=== PATIENT | female | born 1945 | race Caucasian/White ===

== ENCOUNTER 2022-01-08 18:25 | Emergency (ER) | payer BC ==
[2022-01-08] MEDS ORDERED: Acetaminophen/oxyCODONE 325-5 MG Tab PO ONE (18:26)
[2022-01-08] MEDS ORDERED: Ondansetron 4 MG Tab.DIS PO ONE (18:26)
[2022-01-08 18:50] VITALS: BP 160/68; PULSE 91
[2022-01-08] MEDS ORDERED: Midazolam 1 MG/ML 2 ML SDV IVPUSH PRN (19:58)
[2022-01-08] MEDS ORDERED: Ondansetron 4 MG/2 ML SDV IVPUSH ONE (20:57)
[2022-01-08] MEDS ORDERED: fentaNYL 100 MCG/2 ML SDV IVPUSH ONE (20:57)
[2022-01-08] MEDS ORDERED: fentaNYL 100 MCG/2 ML SDV ONE (22:46)
[2022-01-08] MEDS ORDERED: fentaNYL 100 MCG/2 ML SDV IV ONE (22:46)
[2022-01-08] MEDS ORDERED: Ondansetron 4 MG Tab.DIS ONE (22:50)
[2022-01-08] MEDS ORDERED: Acetaminophen/oxyCODONE 325-5 MG Tab ONE (22:50)
== END 2022-01-08 23:00 | disposition home or self-care (01) ==
LOC: DL.ED 18:25
DX: S32.020A Wedge compression fracture of second lumbar vertebra, initial encounter for closed fracture (principal); S32.10XA Unspecified fracture of sacrum, initial encounter for closed fracture; E78.00 Pure hypercholesterolemia, unspecified; I10 Essential (primary) hypertension; E11.9 Type 2 diabetes mellitus without complications; E66.9 Obesity, unspecified; Z68.37 Body mass index [BMI] 37.0-37.9, adult; Z88.1 Allergy status to other antibiotic agents; Z88.0 Allergy status to penicillin; Z88.8 Allergy status to other drugs, medicaments and biological substances; Z88.2 Allergy status to sulfonamides; Z79.82 Long term (current) use of aspirin; Z79.899 Other long term (current) drug therapy; Z79.84 Long term (current) use of oral hypoglycemic drugs; Z90.49 Acquired absence of other specified parts of digestive tract; Z90.710 Acquired absence of both cervix and uterus; W10.9XXA Fall (on) (from) unspecified stairs and steps, initial encounter
CPT/HCPCS: 70450; 71101; 72125; 72131; 72192; 82947; 96374; 96375; 99284; A9270; J2405; J3010

== ENCOUNTER 2024-05-16 17:15 | Emergency (ER) | payer BC ==
[2024-05-16] MEDS ORDERED: Sodium Chloride 0.9% 10 ML Syringe FLUSH PRN (17:21)
[2024-05-16 17:32] LABS: BASOPHILS PERCENT AUTO 0.1 % (0.0-1.0); HEMATOCRIT 44.2 % (37.0-47.0); HEMOGLOBIN 14.7 g/dL (12.0-16.0); LYMPHOCYTES PERCENT AUTO 5.8 % (20.5-50.1); MEAN CORPUSCULAR HEMOGLOBIN 31.3 pg (27.0-34.0); MEAN CORPUSCULAR HGB CONC 33.3 g/dL (33.0-35.0); MEAN CORPUSCULAR VOLUME 94.2 fL (80-100); MONOCYTES PERCENT AUTO 6.8 % (2-8); NEUTROPHILS PERCENT AUTO 87.3 % (42.2-75.2); PLATELET COUNT,PLT 295 10^3/uL (150-450); RED BLOOD CELL COUNT 4.69 10^6/uL (4.2-5.4); WHITE BLOOD CELL COUNT,WBC 17.3 10^3/uL (5.0-10.0)
[2024-05-16 17:55] LABS: A/G RATIO 0.9; ALANINE AMINOTRANSFERASE,ALT 22 U/L (14-59); ALBUMIN 3.7 g/dL (3.4-5.0); ALKALINE PHOSPHATASE 54 U/L (46-116); ANION GAP 19.8 mEq/L (7-13); ASPARTATE AMNIOTRANSFERASE,AST 20 U/L (15-37); BILIRUBIN TOTAL 1.2 mg/dL (0.2-1.0); BLOOD UREA NITROGEN,BUN 13 mg/dL (7-18); CALCIUM 10.1 mg/dL (8.5-10.1); CARBON DIOXIDE,CO2 24 mmol/L (21-32); CHLORIDE,CL 97 mmol/L (98-107); CREATINE KINASE,CK 121 U/L (16-191); CREATININE 0.93 mg/dL (0.55-1.02); GLUCOSE RANDOM 269 mg/dL (70-99); POTASSIUM,K 3.8 mmol/L (3.5-5.1); PROTEIN TOTAL,TP 7.6 g/dL (6.4-8.2); PROTHROMBIN TIME 10.8 SEC (9.0-12.0); PTT,PARTIAL THROMBOPLSTIN TIME 22.7 SEC (22.0-34.0); SODIUM,NA 137 mmol/L (136-145)
[2024-05-16 17:57] LABS: ESTIMATED GFR 63 mL/min (>=60)
[2024-05-16 17:58] LABS: LACTIC ACID 5.1 mmol/L (0.4-2.0)
[2024-05-16 18:09] LABS: APPEARANCE,URINE CLOUDY (CLEAR); BILIRUBIN,URINE NEGATIVE (NEGATIVE); COLOR,URINE YELLOW (YELLOW); GLUCOSE,URINE 500 (NEGATIVE); KETONES,URINE 80 (NEGATIVE); LEUKOCYTE ESTERASE,URINE NEGATIVE (NEGATIVE); NITRITE,URINE NEGATIVE (NEGATIVE); OCCULT BLOOD,URINE TRACE-LYSED (NEGATIVE); PH,URINE 5.5 (5.0-9.0); PROTEIN,URINE 100 (NEGATIVE); UROBILINOGEN,URINE 0.2 mg/dL (0.2-1.0)
[2024-05-16] MEDS: Sodium Chloride 0.9% 1,000 ML IV ONE (18:09)
[2024-05-16 18:16] LABS: BACTERIA,URINE MANY /HPF (0-FEW/HPF); CALCIUM OXALATE CRYSTALS,URINE FEW /HPF (NOT SEEN); EPITHELIAL CELLS,URINE RARE /HPF (NOT SEEN); RBC,URINE 0-5 /HPF (0-5); WBC,URINE 0-5 /HPF (0-5/HPF)
[2024-05-16] MEDS ORDERED: fentaNYL 100 MCG/2 ML SDV ONE (18:27)
[2024-05-16] MEDS ORDERED: Naloxone 2 MG/2 ML Syringe IVPUSH PRN (18:28)
[2024-05-16] MEDS: fentaNYL 100 MCG/2 ML SDV IVPUSH ONE (18:38)
== END 2024-05-16 18:41 ==
LOC: DL.ED 17:15
DX: S06.0X9A Concussion with loss of consciousness of unspecified duration, initial encounter (principal); S30.0XXA Contusion of lower back and pelvis, initial encounter; S30.1XXA Contusion of abdominal wall, initial encounter; D72.829 Elevated white blood cell count, unspecified; M54.2 Cervicalgia; R74.02 Elevation of levels of lactic acid dehydrogenase [LDH]; I10 Essential (primary) hypertension; E78.00 Pure hypercholesterolemia, unspecified; K21.9 Gastro-esophageal reflux disease without esophagitis; E11.9 Type 2 diabetes mellitus without complications; E66.9 Obesity, unspecified; Z90.49 Acquired absence of other specified parts of digestive tract; Z90.710 Acquired absence of both cervix and uterus; Z88.0 Allergy status to penicillin; Z88.2 Allergy status to sulfonamides; Z88.8 Allergy status to other drugs, medicaments and biological substances; Z79.82 Long term (current) use of aspirin; Z79.84 Long term (current) use of oral hypoglycemic drugs; Z79.899 Other long term (current) drug therapy; W01.0XXA Fall on same level from slipping, tripping and stumbling without subsequent striking against object, initial encounter
CPT/HCPCS: 36415; 71045; 72170; 80053; 81001; 82550; 82947; 83605; 83735; 84484; 85025; 85610; 85730; 86850; 86900; 86901; 87040; 87086; 87088; 87186; 93005; 93010; 96365; 96375; 99285; 99291; J0457; J3010; J3490; J7030

== ENCOUNTER 2024-05-23 14:55 | Inpatient (IN) | payer MEDICARE, OTHER ==
[2024-05-23] MEDS ORDERED: Polyethylene Glycol 3350 Powder 17 GM Packet PO PRN (16:34)
[2024-05-23] MEDS ORDERED: Albuterol/Ipratropium 3.0-0.5 MG/3 ML Neb Soln NEB PRN (16:34)
[2024-05-23] MEDS ORDERED: Ondansetron 4 MG Tab.DIS PO PRN (16:34)
[2024-05-23] MEDS ORDERED: Docusate Sodium 100 MG Cap PO PRN (16:34)
[2024-05-23] MEDS ORDERED: Ketorolac 30 MG/ML SDV IM PRN (16:34)
[2024-05-23] MEDS ORDERED: Non-Formulary Medication 1 Each (Methocarbamol [Methocarbamol] 500 MG Tablet) PO PRN (16:44)
[2024-05-23] MEDS: metFORMIN 500 MG Tab PO SCH (18:03)
[2024-05-23] MEDS: Gabapentin 300 MG Cap PO SCH (18:04)
[2024-05-23] MEDS: Simvastatin 40 MG Tab PO SCH (20:30)
[2024-05-23] MEDS: Remove Patch LIDOCAINE PATCHES TRDERM SCH (20:33)
[2024-05-24 06:35] LABS: BASOPHILS PERCENT AUTO 0.4 % (0.0-1.0); EOSINOPHILS PERCENT AUTO 4.4 % (1.0-3.0); HEMATOCRIT 35.1 % (37.0-47.0); HEMOGLOBIN 11.2 g/dL (12.0-16.0); LYMPHOCYTES PERCENT AUTO 24.7 % (20.5-50.1); MEAN CORPUSCULAR HEMOGLOBIN 30.8 pg (27.0-34.0); MEAN CORPUSCULAR HGB CONC 31.9 g/dL (33.0-35.0); MEAN CORPUSCULAR VOLUME 96.4 fL (80-100); MONOCYTES PERCENT AUTO 14.6 % (2-8); NEUTROPHILS PERCENT AUTO 55.9 % (42.2-75.2); PLATELET COUNT,PLT 318 10^3/uL (150-450); RED BLOOD CELL COUNT 3.64 10^6/uL (4.2-5.4); WHITE BLOOD CELL COUNT,WBC 9.3 10^3/uL (5.0-10.0)
[2024-05-24 06:56] LABS: ALBUMIN 2.2 g/dL (3.4-5.0); ANION GAP 11.1 mEq/L (7-13); BILIRUBIN TOTAL 0.5 mg/dL (0.2-1.0); BUN/CREATININE RATIO 14.9 (No establ ref range); CALCIUM 10.2 mg/dL (8.5-10.1); CREATININE 0.67 mg/dL (0.55-1.02); EST CRCL DRUG DOSING (CG) 54.73 mL/min; MAGNESIUM 1.2 mg/dL (1.8-2.4); POTASSIUM,K 4.1 mmol/L (3.5-5.1); PROTEIN TOTAL,TP 5.9 g/dL (6.4-8.2)
[2024-05-24 06:59] LABS: A/G RATIO 0.59
[2024-05-24 07:02] LABS: PTT,PARTIAL THROMBOPLSTIN TIME 22.8 SEC (22.0-34.0)
[2024-05-24] MEDS: Lidocaine 5% 700 MG Patch TOP SCH (10:07)
[2024-05-24] MEDS: Enoxaparin 40 MG/0.4 ML Syringe SUBCUT SCH (10:08)
[2024-05-24] MEDS: Benazepril 10 MG Tab PO SCH (10:08)
[2024-05-24] MEDS: Calcitonin (Salmon) Nasal Spray 3.7 ML Bottle NAS SCH (10:08)
[2024-05-24] MEDS: Ascorbic Acid 500 MG Tab PO SCH (10:09)
[2024-05-24] MEDS: Cholecalciferol (Vitamin D3) 25 MCG Tab PO SCH (10:10)
[2024-05-24] MEDS: Glimepiride 2 MG Tab PO SCH (10:10)
[2024-05-24] MEDS: Acetaminophen 325 MG Tab PO PRN (10:11)
[2024-05-24] MEDS: Hydrochlorothiazide/Triamterene 25-37.5 Tab PO SCH (10:12)
[2024-05-24] MEDS: amLODIPine 5 MG Tab PO SCH (10:12)
[2024-05-24] MEDS: Vitamin E (dl-alpha-tocopherol acetate) 400 Unit Cap PO SCH (10:13)
[2024-05-24] MEDS ORDERED: Sodium Chloride 0.9% 10 ML Syringe FLUSH PRN (10:29)
[2024-05-24] MEDS: Atenolol 50 MG Tab PO SCH (12:08)
[2024-05-24] MEDS ORDERED: Glucagon,Human Recombinant 1 MG Vial IM PRN (12:41)
[2024-05-24] MEDS ORDERED: 50% Dextrose in Water 50 ML Syringe IVPUSH PRN (12:41)
[2024-05-24] MEDS: Magnesium Sulfate/Water Premix 4 GM in Premix Bag 1 BAG IV ONE (12:54)
[2024-05-24] MEDS: Magnesium Sulfate/Water Premix 100 ML ONE (12:58)
[2024-05-24] MEDS: [UNRECOGNIZED DRUG - OTHER] ONE (12:59)
[2024-05-24] MEDS: MAGNESIUM SULFATE ONE (12:59)
[2024-05-24] MEDS: Non-Formulary Medication 1 Each (Alendronate Sodium [Alendronate Sodium] 70 MG Tablet) PO SCH (13:44)
[2024-05-24] MEDS: Magnesium Oxide 400 MG Tab PO SCH (14:25)
[2024-05-24] MEDS: Insulin Lispro 100 Units/ML 3 ML Vial SUBCUT SCH (14:25)
[2024-05-24] MEDS ORDERED: Insulin Lispro 100 Units/ML 3 ML Vial SUBCUT SCH (17:00)
[2024-05-24] MEDS ORDERED: Sodium Chloride 0.9% 10 ML Syringe FLUSH SCH (21:00)
[2024-05-24] MEDS: Insulin Glarg,Human.Rec.Analog 100 Unit/ML 10 ML Vial SUBCUT SCH (22:24)
[2024-05-25 06:52] LABS: BASOPHILS PERCENT AUTO 0.5 % (0.0-1.0); EOSINOPHILS PERCENT AUTO 3.9 % (1.0-3.0); HEMATOCRIT 35.8 % (37.0-47.0); HEMOGLOBIN 11.5 g/dL (12.0-16.0); LYMPHOCYTES PERCENT AUTO 28.1 % (20.5-50.1); MEAN CORPUSCULAR HGB CONC 32.1 g/dL (33.0-35.0); MEAN CORPUSCULAR VOLUME 96.5 fL (80-100); MONOCYTES PERCENT AUTO 14.9 % (2-8); NEUTROPHILS PERCENT AUTO 52.6 % (42.2-75.2); PLATELET COUNT,PLT 331 10^3/uL (150-450); RED BLOOD CELL COUNT 3.71 10^6/uL (4.2-5.4); WHITE BLOOD CELL COUNT,WBC 9.8 10^3/uL (5.0-10.0)
[2024-05-25 07:13] LABS: ALBUMIN 2.5 g/dL (3.4-5.0); ANION GAP 15.3 mEq/L (7-13); BILIRUBIN TOTAL 0.5 mg/dL (0.2-1.0); BUN/CREATININE RATIO 17.6 (No establ ref range); CALCIUM 10.4 mg/dL (8.5-10.1); CREATININE 0.74 mg/dL (0.55-1.02); EST CRCL DRUG DOSING (CG) 49.55 mL/min; MAGNESIUM 1.4 mg/dL (1.8-2.4); POTASSIUM,K 4.3 mmol/L (3.5-5.1); PROTEIN TOTAL,TP 6.2 g/dL (6.4-8.2)
[2024-05-25 07:24] LABS: A/G RATIO 0.68
[2024-05-25] MEDS: amLODIPine 5 MG Tab PO SCH (08:38)
[2024-05-25] MEDS: Chlorthalidone 25 MG Tab PO SCH (08:39)
[2024-05-25] MEDS: Non-Formulary Medication 1 Each (Estradiol [Estrace 0.01% Vaginal Crm] 42.5 GM Tube) VAG SCH (15:53)
[2024-05-25] MEDS: CLOBETASOL 0.05% TOP SCH (21:26)
[2024-05-25] MEDS: DULOXETINE HCL 20 MG PO SCH (21:26)
[2024-05-26] MEDS: FISH OIL PO SCH (09:08)
[2024-05-26] MEDS: Melatonin 3 MG Tab PO PRN (21:00)
[2024-05-26] MEDS: Insulin Glarg,Human.Rec.Analog 100 Unit/ML 10 ML Vial SUBCUT SCH (21:03)
[2024-05-27] MEDS: Acetaminophen/oxyCODONE 325-5 MG Tab PO PRN (00:43)
[2024-05-27] MEDS: amLODIPine 5 MG Tab PO SCH (09:30)
[2024-05-27] MEDS: Ibuprofen 400 MG Tab PO PRN (17:13)
[2024-05-27] MEDS: Lidocaine 5% 700 MG Patch TOP SCH (20:40)
[2024-05-27 23:41] LABS: CALCIUM 10.6 mg/dL (8.8-10.2)
[2024-05-28] MEDS ORDERED: FOSAMAX 70 MG PO SCH (06:00)
[2024-05-28] MEDS: Remove Patch LIDOCAINE PATCHES TRDERM SCH (08:17)
[2024-05-28] MEDS: traMADol 50 MG Tab PO ONE (21:06)
[2024-05-28] MEDS: amLODIPine 5 MG Tab PO SCH (21:07)
[2024-05-28] MEDS: Insulin Glarg,Human.Rec.Analog 100 Unit/ML 10 ML Vial SUBCUT SCH (21:09)
[2024-05-29 06:16] LABS: HEMOGLOBIN 11.8 g/dL (12.0-16.0); MEAN CORPUSCULAR HEMOGLOBIN 30.3 pg (27.0-34.0); MEAN CORPUSCULAR HGB CONC 31.1 g/dL (33.0-35.0); MEAN CORPUSCULAR VOLUME 97.7 fL (80-100); PLATELET COUNT,PLT 520 10^3/uL (150-450); RED BLOOD CELL COUNT 3.89 10^6/uL (4.2-5.4); WHITE BLOOD CELL COUNT,WBC 12.2 10^3/uL (5.0-10.0)
[2024-05-29 06:21] LABS: NEUTROPHILS PERCENT AUTO 51.2 % (42.2-75.2)
[2024-05-29 06:22] LABS: BASOPHILS PERCENT AUTO 0.3 % (0.0-1.0); EOSINOPHILS PERCENT AUTO 3.5 % (1.0-3.0); LYMPHOCYTES PERCENT AUTO 32.2 % (20.5-50.1); MONOCYTES PERCENT AUTO 12.8 % (2-8)
[2024-05-29 06:40] LABS: ALBUMIN 2.8 g/dL (3.4-5.0); ANION GAP 12.6 mEq/L (7-13); BILIRUBIN TOTAL 0.6 mg/dL (0.2-1.0); BUN/CREATININE RATIO 11.8 (No establ ref range); CALCIUM 10.1 mg/dL (8.5-10.1); CREATININE 0.76 mg/dL (0.55-1.02); EST CRCL DRUG DOSING (CG) 48.25 mL/min; MAGNESIUM 1.6 mg/dL (1.8-2.4); POTASSIUM,K 4.6 mmol/L (3.5-5.1); PROTEIN TOTAL,TP 6.8 g/dL (6.4-8.2)
[2024-05-29 06:43] LABS: A/G RATIO 0.7
[2024-05-29 07:05] LABS: EOSINOPHILS PERCENT MAN 3 % (1-3); LYMPHOCYTES PERCENT MAN 33 % (20-50); MONOCYTES PERCENT MAN 8 % (2-8); SEG NEUTROPHILS PERCENT MAN 56 % (42-75)
[2024-05-29] MEDS ORDERED: traMADol 50 MG Tab PO PRN (13:04)
[2024-05-29] MEDS: metFORMIN 500 MG Tab PO SCH (17:39)
[2024-05-30 06:15] LABS: BASOPHILS PERCENT AUTO 0.4 % (0.0-1.0); EOSINOPHILS PERCENT AUTO 4.1 % (1.0-3.0); HEMATOCRIT 36.8 % (37.0-47.0); HEMOGLOBIN 12.1 g/dL (12.0-16.0); LYMPHOCYTES PERCENT AUTO 30.7 % (20.5-50.1); MEAN CORPUSCULAR HEMOGLOBIN 31.6 pg (27.0-34.0); MEAN CORPUSCULAR HGB CONC 32.9 g/dL (33.0-35.0); MEAN CORPUSCULAR VOLUME 96.1 fL (80-100); MONOCYTES PERCENT AUTO 13.8 % (2-8); PLATELET COUNT,PLT 449 10^3/uL (150-450); RED BLOOD CELL COUNT 3.83 10^6/uL (4.2-5.4); WHITE BLOOD CELL COUNT,WBC 9.8 10^3/uL (5.0-10.0)
[2024-05-30 06:43] LABS: A/G RATIO 0.69; ALBUMIN 2.7 g/dL (3.4-5.0); BILIRUBIN TOTAL 0.5 mg/dL (0.2-1.0); BUN/CREATININE RATIO 15.9 (No establ ref range); CALCIUM 9.9 mg/dL (8.5-10.1); CREATININE 0.82 mg/dL (0.55-1.02); EST CRCL DRUG DOSING (CG) 44.72 mL/min; MAGNESIUM 1.7 mg/dL (1.8-2.4); PROTEIN TOTAL,TP 6.6 g/dL (6.4-8.2)
[2024-05-30] MEDS: metFORMIN 500 MG Tab PO SCH (17:30)
[2024-05-31] MEDS: Insulin Glarg,Human.Rec.Analog 100 Unit/ML 10 ML Vial SUBCUT SCH (20:47)
[2024-06-01 07:12] LABS: HEMOGLOBIN A1C 6.6 % (<5.7)
[2024-06-01] MEDS: metFORMIN 500 MG Tab PO SCH (08:50)
[2024-06-02 06:53] LABS: BASOPHILS PERCENT AUTO 0.7 % (0.0-1.0); EOSINOPHILS PERCENT AUTO 4.3 % (1.0-3.0); HEMATOCRIT 37.5 % (37.0-47.0); HEMOGLOBIN 12.3 g/dL (12.0-16.0); MEAN CORPUSCULAR HEMOGLOBIN 31.2 pg (27.0-34.0); MEAN CORPUSCULAR HGB CONC 32.8 g/dL (33.0-35.0); MEAN CORPUSCULAR VOLUME 95.2 fL (80-100); MONOCYTES PERCENT AUTO 14.7 % (2-8); NEUTROPHILS PERCENT AUTO 48.3 % (42.2-75.2); PLATELET COUNT,PLT 506 10^3/uL (150-450); RED BLOOD CELL COUNT 3.94 10^6/uL (4.2-5.4); WHITE BLOOD CELL COUNT,WBC 9.3 10^3/uL (5.0-10.0)
[2024-06-02 07:17] LABS: A/G RATIO 0.72; ALBUMIN 2.8 g/dL (3.4-5.0); ANION GAP 13.9 mEq/L (7-13); BILIRUBIN TOTAL 0.5 mg/dL (0.2-1.0); BUN/CREATININE RATIO 15.9 (No establ ref range); CALCIUM 10.1 mg/dL (8.5-10.1); CREATININE 0.82 mg/dL (0.55-1.02); EST CRCL DRUG DOSING (CG) 44.72 mL/min; MAGNESIUM 1.4 mg/dL (1.8-2.4); POTASSIUM,K 3.9 mmol/L (3.5-5.1); PROTEIN TOTAL,TP 6.7 g/dL (6.4-8.2)
[2024-06-02 07:45] VITALS: BP 166/67; PULSE 67
== END 2024-06-02 10:20 | disposition home or self-care (01) | DRG 948 ==
LOC: DL.MS 14:55
PROVIDERS: ADMIT Internal Medicine; ATTEND Student in an Organized Health Care Education/Training Program
DX: R53.81 Other malaise (principal); E87.1 Hypo-osmolality and hyponatremia; I10 Essential (primary) hypertension; E11.9 Type 2 diabetes mellitus without complications; G47.33 Obstructive sleep apnea (adult) (pediatric); J30.9 Allergic rhinitis, unspecified; H54.7 Unspecified visual loss; E78.00 Pure hypercholesterolemia, unspecified; G47.30 Sleep apnea, unspecified; K52.9 Noninfective gastroenteritis and colitis, unspecified; K21.9 Gastro-esophageal reflux disease without esophagitis; M81.0 Age-related osteoporosis without current pathological fracture; E66.9 Obesity, unspecified; N32.81 Overactive bladder; G51.0 Bell's palsy; D72.829 Elevated white blood cell count, unspecified; D75.839 Thrombocytosis, unspecified; D64.9 Anemia, unspecified; E83.52 Hypercalcemia; E83.42 Hypomagnesemia; R79.89 Other specified abnormal findings of blood chemistry; E83.39 Other disorders of phosphorus metabolism; E88.09 Other disorders of plasma-protein metabolism, not elsewhere classified; Z90.89 Acquired absence of other organs; Z90.49 Acquired absence of other specified parts of digestive tract; Z87.891 Personal history of nicotine dependence; Z86.19 Personal history of other infectious and parasitic diseases; Z88.0 Allergy status to penicillin; Z88.2 Allergy status to sulfonamides; Z88.8 Allergy status to other drugs, medicaments and biological substances; Z79.84 Long term (current) use of oral hypoglycemic drugs; Z79.1 Long term (current) use of non-steroidal anti-inflammatories (NSAID); Z79.899 Other long term (current) drug therapy; Z79.02 Long term (current) use of antithrombotics/antiplatelets; Z87.81 Personal history of (healed) traumatic fracture; Z98.890 Other specified postprocedural states; Z90.710 Acquired absence of both cervix and uterus; Z98.51 Tubal ligation status; S22.41XD Multiple fractures of ribs, right side, subsequent encounter for fracture with routine healing; S06.30AD Unspecified focal traumatic brain injury with loss of consciousness status unknown, subsequent encounter
CPT/HCPCS: 36415; 80053; 82310; 82947; 82977; 83036; 83735; 83970; 84100; 85025; 85610; 85730; 97110-GO; 97110-GP; 97116-GP; 97161-GP; 97165-GO; 97530-GO; 97530-GP; 97535-GO; 99306; 99309; 99315; A9270-GY; J1650; J1815-GY